=== PATIENT | male | born 1935 | race Caucasian/White ===

== ENCOUNTER 2017-04-16 13:37 | Inpatient (IN) | payer MEDICARE ==
[2017-04-16] VITALS (7 sets, daily range): BP systolic 151–220; BP diastolic 76–119; PULSE 55–87; RESP 16–20; TEMP 97.8–98.7; O2SAT 94–97
[~2017-04-16] VITALS: Ht 182.9 cm; Wt 103.8 kg
[2017-04-16] MEDS ORDERED: VITATAB43 PO (13:56)
[2017-04-16] MEDS ORDERED: NAPR250T4 PO (13:56)
[2017-04-16] MEDS ORDERED: METO50TA PO (13:56)
[2017-04-16] MEDS ORDERED: TAMS0.4C4 PO (13:56)
[2017-04-16] MEDS ORDERED: AMLO5TAB2 PO (13:56)
[2017-04-16] MEDS ORDERED: LISI-515 PO (13:56)
[2017-04-16] MEDS ORDERED: ASPI325T33 PO (13:56)
[2017-04-16] MEDS ORDERED: METF500T4 PO (13:56)
[2017-04-16] MEDS ORDERED: VITA1000 PO (13:56)
[2017-04-16] MEDS ORDERED: ATOR40TA16 PO (13:56)
[2017-04-16] MEDS ORDERED: ACET25TA4 PO (13:58)
[2017-04-16] MEDS ORDERED: OMEGCAP PO (13:58)
--- NOTE | 2017-04-16 13:59 | PD ---
HPI Chief Complaint: Neuro Symptoms/ Deficits Time Seen by Provider: 13:51 Travel History International Travel<30 days: No Contact w/Intl Traveler<30days: No Traveled to known affect area: No History of Present Illness HPI This 82-year-old male woke up this morning with slurred speech. This has not improved. He has been ambulatory. He has been using both of his arms without dropping anything. He appears confused at times. He has no history of a stroke. He did have a right carotid endarterectomy several years ago. 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 He has no history of heart disease. He does take an aspirin every day. He has not been complaining of pain. FOR[facility], [facility] Social History Tobacco Use: No Allergies-Medications (Allergen,Severity, Reaction): Coded Allergies: No Known Allergies (Unverified , 04/16/17) Reported Meds & Prescriptions Reported Meds & Active Scripts Active Reported Acetaminophen Pm Extra St (Diphenhydramine-Acetaminophen) 500-25 mg Tab 1 Tab PO DAILY [place]-3 Fish Oil/Vitamin (Fish Oil-Cholecalciferol) 1,000-1,000 Mg Cap 1 Cap PO DAILY Vitamin U85-Ythpw Acid (Cobalamine Combinations) 500-400 Mcg Tab 1 Tab PO DAILY Aspirin EC (Aspirin) 325 Mg Tabdr 325 Mg PO DAILY Amlodipine (Amlodipine Besylate) 5 Mg Tab 5 Mg PO DAILY Vitamin D-1000 (Cholecalciferol) 1,000 Unit Tab 2,000 Units PO DAILY Naproxen 250 Mg Tab 250 Mg PO DAILY Tamsulosin (Tamsulosin HCl) 0.4 Mg Cap 0.4 Mg PO HS Metoprolol Tartrate 50 Mg Tab 50 Mg PO DAILY Atorvastatin (Atorvastatin Calcium) 40 Mg Tab 40 Mg PO HS Lisinopril 20 Mg Tab 20 Mg PO BID Metformin ER (Metformin HCl) 500 Mg Lance 500 Mg PO BID With evening meal Review of Systems ROS Limitations: Speech Impaired, Poor Historian General / Constitutional: No: Fever, Chills Eyes: No: Diploplia, Blurred Vision HENT: No: Headaches, Vertigo Cardiovascular: No: Chest Pain or Discomfort, Palpitations Respiratory: No: Cough, Shortness of Breath Gastrointestinal: No: Vomiting, Diarrhea Genitourinary: No: Urgency, Frequency Musculoskeletal: No: Myalgias, Arthralgias Skin: No Rash, No Itching Neurologic: Positive: Slurred Speech, No: Weakness Psychiatric: No: Anxiety, Depression Endocrine: No: Heat Intolerance, Cold Intolerance Hematologic/Lymphatic: No: Easy Bruising Physical Exam Narrative GENERAL: Well-developed male SKIN: Focused skin assessment warm/dry. HEAD: Atraumatic. Normocephalic. EYES: Pupils equal and round. No scleral icterus. No injection or drainage. ENT: No nasal bleeding or discharge. Mucous membranes pink and moist. NECK: Trachea midline. No JVD. There is a right carotid endarterectomy scar CARDIOVASCULAR: Regular rate and rhythm. No murmur appreciated. RESPIRATORY: No accessory muscle use. Clear to auscultation. Breath sounds equal bilaterally. GASTROINTESTINAL: Abdomen soft, non-tender, nondistended. Hepatic and splenic margins not palpable. MUSCULOSKELETAL: No obvious deformities. No clubbing. No cyanosis. No edema. NEUROLOGICAL: Awake . No obvious cranial nerve deficits. Motor grossly within normal limits. Speech is slurred. He does have trouble finding words and sometimes says inappropriate words PSYCHIATRIC: Not testable Data Data Last Documented VS Vital Signs Date Time Temp Pulse Resp B/P (MAP) Pulse Ox O2 Delivery O2 Flow Rate FiO2 04/16/17 15:06 67 18 194/96 (128) 95 Room Air 04/16/17 13:41 98.7 Orders Orders Electrocardiogram (04/16/17 13:51) Complete Blood Count With Diff (04/16/17 13:51) Comprehensive Metabolic Panel (04/16/17 13:51) Prothrombin Time / Inr (Pt) (04/16/17 13:51) Act Partial Throm Time (Ptt) (04/16/17 13:51) Urinalysis - C+S If Indicated (04/16/17 13:51) Magnesium (Mg) (04/16/17 13:51) Chest, Single Ap (04/16/17 13:51) Ct Brain W/O Iv Contrast(Rout) (04/16/17 13:51) Admit Order (Ed Use Only) (04/16/17 15:16) Labs Laboratory Tests Test 04/16/17 14:00 04/16/17 15:05 White Blood Count 9.3 TH/MM3 Red Blood Count 5.19 MIL/MM3 Hemoglobin 15.7 GM/DL Hematocrit 49.3 % Mean Corpuscular Volume 95.0 FL Mean Corpuscular Hemoglobin 30.3 PG Mean Corpuscular Hemoglobin Concent 31.9 % Red Cell Distribution Width 14.8 % Platelet Count 274 TH/MM3 Mean Platelet Volume 9.2 FL Neutrophils (%) (Auto) 69.6 % Lymphocytes (%) (Auto) 21.7 % Monocytes (%) (Auto) 5.1 % Eosinophils (%) (Auto) 1.0 % Basophils (%) (Auto) 2.6 % Neutrophils # (Auto) 6.5 TH/MM3 Lymphocytes # (Auto) 2.0 TH/MM3 Monocytes # (Auto) 0.5 TH/MM3 Eosinophils # (Auto) 0.1 TH/MM3 Basophils # (Auto) 0.2 TH/MM3 CBC Comment DIFF FINAL Differential Comment Prothrombin Time 11.3 SEC Prothromb Time International Ratio 1.1 RATIO Activated Partial Thromboplast Time 28.6 SEC Blood Urea Nitrogen 16 MG/DL Creatinine 1.30 MG/DL Random Glucose 120 MG/DL Total Protein 6.7 GM/DL Albumin 3.7 GM/DL Calcium Level 9.1 MG/DL Magnesium Level 1.9 MG/DL Alkaline Phosphatase 68 U/L Aspartate Amino Transf (AST/SGOT) 14 U/L Alanine Aminotransferase (ALT/SGPT) 17 U/L Total Bilirubin 1.0 MG/DL Sodium Level 143 MEQ/L Potassium Level 3.8 MEQ/L Chloride Level 107 MEQ/L Carbon Dioxide Level 28.1 MEQ/L Anion Gap 8 MEQ/L Estimat Glomerular Filtration Rate 53 ML/MIN Urine Color YELLOW Urine Turbidity CLEAR Urine pH 6.5 Urine Specific [place] 1.016 Urine Protein NEG mg/dL Urine Glucose (UA) NEG mg/dL Urine Ketones NEG mg/dL Urine Occult Blood NEG Urine Nitrite NEG Urine Bilirubin NEG Urine Leukocyte Esterase NEG Urine RBC 0-3 /hpf Urine WBC 3-5 /hpf Urine Squamous Epithelial Cells 0-5 /hpf Urine Hyaline Casts 6-9 /lpf Urine Mucus FEW /lpf Microscopic Urinalysis Comment CULT NOT INDICATED MDM Medical Decision Making Medical Screen Exam Complete: Yes Emergency Medical Condition: Yes Medical Record Reviewed: Yes Differential Diagnosis Differential includes CVA, tumor Narrative Course Patient's symptoms were present at 7:30 when he woke up. It is now approaching 2 PM. He is out of the window for TPA. CT scan has been read as negative. His EKG shows atrial fibrillation. His is not aware of any history of atrial fibrillation and discussed the case with Dr. Ruiz. He recommends carotid ultrasound, echocardiogram and MRI of the brain without contrast. Patient will be admitted Diagnosis Primary Impression: Acute CVA (cerebrovascular accident) Admitting Information Admitting Physician Requests: Admit Aakash Lundberg MD Apr 16, 2017 13:59
[2017-04-16 14:05] LABS: AUTOMATED NEUTROPHIL # 6.5 TH/MM3 (1.8-7.7); BASOPHIL # 0.2 TH/MM3 (0-0.2); BASOPHIL % 2.6 % (0.0-2.0); EOSINOPHIL # 0.1 TH/MM3 (0-0.4); HEMATOCRIT 49.3 % (39.0-51.0); HEMOGLOBIN 15.7 GM/DL (13.0-17.0); LYMPH % 21.7 % (9.0-44.0); MEAN CORPUSCULAR HEMOGLOBIN 30.3 PG (27.0-34.0); MEAN CORPUSCULAR HGB CONC 31.9 % (32.0-36.0); MEAN PLATELET VOLUME 9.2 FL (7.0-11.0); MONO % 5.1 % (0.0-8.0); MONOCYTE # 0.5 TH/MM3 (0-0.9); NEUT % 69.6 % (16.0-70.0); PLATELET COUNT 274 TH/MM3 (150-450); RED BLOOD COUNT 5.19 MIL/MM3 (4.50-5.90); RED CELL DISTRIBUTION WIDTH 14.8 % (11.6-17.2); WHITE BLOOD COUNT 9.3 TH/MM3 (4.0-11.0)
[2017-04-16 14:16] LABS: CHLORIDE 107 MEQ/L (98-107); SODIUM (NA) 143 MEQ/L (136-145)
[2017-04-16 14:20] LABS: CALCIUM 9.1 MG/DL (8.5-10.1); INTERNATIONAL NORMALIZED RATIO 1.1 RATIO; PROTHROMBIN TIME - PATIENT 11.3 SEC (9.8-11.6)
[2017-04-16 14:21] LABS: ALBUMIN 3.7 GM/DL (3.4-5.0); BICARBONATE 28.1 MEQ/L (21.0-32.0); BLOOD UREA NITROGEN 16 MG/DL (7-18); GLUCOSE,RANDOM 120 MG/DL (74-106); MAGNESIUM 1.9 MG/DL (1.5-2.5)
[2017-04-16 14:24] LABS: ALT (GPT) 17 U/L (12-78); AST (GOT) 14 U/L (15-37); GLOMERULAR FILTRATION RATE 53 ML/MIN (>89)
[2017-04-16 14:26] LABS: TOTAL PROTEIN 6.7 GM/DL (6.4-8.2)
[2017-04-16 14:27] LABS: ALKALINE PHOSPHATASE 68 U/L (45-117)
--- NOTE | 2017-04-16 14:49 | RADRPT ---
EXAM DATE/TIME: 04/16/2017 14:32 [facility] COMPARISON: No previous studies available for comparison. INDICATIONS : Stroke alert MEDICAL HISTORY : AV malformation SURGICAL HISTORY : carotid artery "cleaned out" ENCOUNTER: Initial ACUITY: 1 day PAIN SCORE: 7/10 LOCATION: Bilateral chest FINDINGS: The lungs are clear. The heart is minimally enlarged. The pulmonary vascularity is normal. There is n o evidence for infiltrate or failure. The portion of the bony skeleton visualized is unremarkable. CONCLUSION: Compensated cardiomegaly otherwise negative Erasto Smith MD FACR on April 16, 2017 at 14:46 Board Certified Radiologist. This report was verified electronically.
--- NOTE | 2017-04-16 14:50 | RADRPT ---
EXAM DATE/TIME: 04/16/2017 14:33 [facility] COMPARISON: No previous studies available for comparison. INDICATIONS : Slurred speech and expressive aphasia. RADIATION DOSE: 62.54 CTDIvol (mGy) MEDICAL HISTORY : Parkinson's. Hypercholesterolemia. Hypertension. Diabetes. AV malformation. SURGICAL HISTORY : Carotid endarterectomy. ENCOUNTER: Initial ACUITY: 1 day PAIN SCALE: 0/10 LOCATION: cranial TECHNIQUE: Multiple contiguous axial images were obtained of the head. Using automated exposure control and adj ustment of the mA and/or kV according to patient size, radiation dose was kept as low as reasonably a chievable to obtain optimal diagnostic quality images. DICOM format image data is available electro nically for review and comparison. FINDINGS: CEREBRUM: The ventricles are normal for age. No evidence of midline shift, mass lesion, hemorrhage or acute in farction. No extra-axial fluid collections are seen. POSTERIOR FOSSA: The cerebellum and brainstem are intact. The 4th ventricle is midline. The cerebellopontine angle i s unremarkable. EXTRACRANIAL: The visualized portion of the orbits is intact. SKULL: The calvaria is intact. No evidence of skull fracture. CONCLUSION: Negative noncontrast axial head CT from the acute process. I do not seen the evidence of an AV malfo rmation. Erasto Smith MD FACR on April 16, 2017 at 14:47 Board Certified Radiologist. This report was verified electronically.
[2017-04-16 15:18] LABS: BILIRUBIN, URINE NEG (NEG); BLOOD, URINE NEG (NEG); GLUCOSE,URINE NEG (NEG); KETONE, URINE NEG (NEG); NITRITE,URINE NEG (NEG); PH, URINE 6.5 (5.0-8.5); URINE LEUKOCYTE ESTERASE NEG (NEG)
[2017-04-16 15:24] LABS: URINE COLOR YELLOW (YELLW/STRAW)
[2017-04-16 15:25] LABS: MUCUS URINE FEW /lpf (OCC); RBC, URINE 0-3 /hpf (0-3); SQUAMOUS EPITHELIAL CELL URINE 0-5 /hpf (0-5)
[2017-04-16] MEDS ORDERED: ASPIRIN 325 MG TAB PO ONE (15:30)
[2017-04-16] MEDS ORDERED: ASPIRIN 325 MG TAB PO SCH (15:30)
--- NOTE | 2017-04-16 15:56 | HHI.HP ---
[facility] Primary Care Physician Non-Staff Admission Diagnosis ACUTE CVA Diagnoses: Chief Complaint: Slurred speech Travel History International Travel<30 Days: No Contact w/Intl Traveler <30 Da: No Traveled to Known Affected Are: No History of Present Illness 82-year-old white male being brought in for strokelike symptoms. Patient was in his usual state of health until earlier this morning when his notified he had slurred speech since waking up. She said he would mispronounce words but she knew what he was trying to stay. She denies seeing any facial droop, abnormal gait, or any focal limb deficits. She says he ate his meals fine without any choking or respiratory distress. Patient denies any new pain symptoms today. says there is no further worsening of his confusion or dementia today compared to his baseline. says she gave him his typical daily 325 mg aspirin today and then another dose when she thought he needed further medical attention. states that the patient was diagnosed with Parkinson's disease by his primary care doctor. He never saw a neurologist. says they had declined medical treatment for and so the patient just lives with it on the day by day basis. thinks that the patient has slowly started developing some dementia. Review of Systems Except as stated in HPI: all other systems reviewed are Neg Past Family Social History Past Medical History BPH Hypertension CAD Past Surgical History Carotid endarterectomy left side Allergies: Coded Allergies: No Known Allergies (Unverified , 04/16/17) Family History parkinson's dx Social History used to smoke before 30 years ago ETOH Physical Exam Vital Signs Vital Signs Date Time Temp Pulse Resp B/P (MAP) Pulse Ox O2 Delivery O2 Flow Rate FiO2 04/16/17 15:06 67 18 194/96 (128) 95 Room Air 04/16/17 14:05 Room Air 04/16/17 13:41 98.7 55 16 151/87 (108) 95 Physical Exam VS: afebrile GENERAL: Elderly white male, well-nourished, awake, no acute distress SKIN: Warm and dry. EYES: Pupils equal and round. No scleral icterus. No injection or drainage. ENT: No nasal bleeding or discharge. Mucous membranes pink and moist. CARDIOVASCULAR: Regular rate and rhythm. no murmurs RESPIRATORY: No accessory muscle use. Clear to auscultation. Breath sounds equal bilaterally. GASTROINTESTINAL: Abdomen soft, non-tender, nondistended. Extremities: No clubbing, cyanosis, or edema. No obvious deformities. MUSCULOSKELETAL: grossly intact ROM with 5/5 strength in upper and lower extremities proximally; adequate muscle bulk and tone for age and habitus NEUROLOGICAL: Awake and alert. No obvious cranial nerve deficits. No facial droop; did have some transiently slurred speech that self resolved. Does have very minimal cogwheel rigidity on the right arm/forearm, none on the left. Intact finger to nose to finger bilaterally. Intact heel to marquez bilaterally. Appears to have very minimal shuffled gait, steady otherwise. Diminished patellar reflexes BL. Tongue in midline, shoulder shrug intact. Intact dorsiflexion and plantar flexion of bilateral feet. PSYCHIATRIC: Appropriate mood and affect; insight and judgment normal. Laboratory Laboratory Tests Test 04/16/17 14:00 04/16/17 15:05 White Blood Count 9.3 Red Blood Count 5.19 Hemoglobin 15.7 Hematocrit 49.3 Mean Corpuscular Volume 95.0 Mean Corpuscular Hemoglobin 30.3 Mean Corpuscular Hemoglobin Concent 31.9 Red Cell Distribution Width 14.8 Platelet Count 274 Mean Platelet Volume 9.2 Neutrophils (%) (Auto) 69.6 Lymphocytes (%) (Auto) 21.7 Monocytes (%) (Auto) 5.1 Eosinophils (%) (Auto) 1.0 Basophils (%) (Auto) 2.6 Neutrophils # (Auto) 6.5 Lymphocytes # (Auto) 2.0 Monocytes # (Auto) 0.5 Eosinophils # (Auto) 0.1 Basophils # (Auto) 0.2 CBC Comment DIFF FINAL Differential Comment Prothrombin Time 11.3 Prothromb Time International Ratio 1.1 Activated Partial Thromboplast Time 28.6 Blood Urea Nitrogen 16 Creatinine 1.30 Random Glucose 120 Total Protein 6.7 Albumin 3.7 Calcium Level 9.1 Magnesium Level 1.9 Alkaline Phosphatase 68 Aspartate Amino Transf (AST/SGOT) 14 Alanine Aminotransferase (ALT/SGPT) 17 Total Bilirubin 1.0 Sodium Level 143 Potassium Level 3.8 Chloride Level 107 Carbon Dioxide Level 28.1 Anion Gap 8 Estimat Glomerular Filtration Rate 53 Urine Color YELLOW Urine Turbidity CLEAR Urine pH 6.5 Urine Specific [place] 1.016 Urine Protein NEG Urine Glucose (UA) NEG Urine Ketones NEG Urine Occult Blood NEG Urine Nitrite NEG Urine Bilirubin NEG Urine Leukocyte Esterase NEG Urine RBC 0-3 Urine WBC 3-5 Urine Squamous Epithelial Cells 0-5 Urine Hyaline Casts 6-9 Urine Mucus FEW Microscopic Urinalysis Comment CULT NOT INDICATED Result Diagram: 04/16/17 1400 04/16/17 1400 Imaging Last Impressions Head CT 04/16/17 1351 Signed Impressions: Service Date/Time: Sunday, April 16, 2017 14:33 - CONCLUSION: Negative noncontrast axial head CT from the acute process. I do not seen the evidence of an AV malformation. Erasto Smith MD FACR Chest X-Ray 04/16/17 1351 Signed Impressions: Service Date/Time: Sunday, April 16, 2017 14:32 - CONCLUSION: Compensated cardiomegaly otherwise negative Erasto Smith MD FACR Caprini VTE Risk Assessment Caprini VTE Risk Assessment: Mod/High Risk (score >= 2) Caprini Risk Assessment Model Point Value = 1 Point Value = 2 Point Value = 3 Point Value = 5 Age 41-60 Minor surgery BMI > 25 kg/m2 Swollen legs Varicose veins or History of unexplained or recurrent spontaneous Oral contraceptives or hormone replacement Sepsis (< 1 month) Serious lung disease, including pneumonia (< 1 month) Abnormal pulmonary function Acute myocardial infarction Congestive heart failure (< 1 month) History of inflammatory bowel disease Medical patient at bed rest Age 61-74 Arthroscopic surgery Major open surgery (> 45 min) Laparoscopic surgery (> 45 min) Malignancy Confined to bed (> 72 hours) Immobilizing plaster cast Central venous access Age >= 75 History of VTE Family history of VTE Factor V Leiden Prothrombin [id number] Lupus anticoagulant Anticardiolipin antibodies Elevated serum homocysteine Heparin-induced thrombocytopenia Other congenital or acquired thrombophilia Stroke (< 1 month) Elective arthroplasty Hip, pelvis, or leg fracture Acute spinal cord injury (< 1 month) Prophylaxis Regimen Total Risk Factor Score Risk Level Prophylaxis Regimen 0-1 Low Early ambulation 2 Moderate Order ONE of the following: *Sequential Compression Device (SCD) *Heparin 5000 units SQ BID 3-4 Higher Order ONE of the following medications: *Heparin 5000 units SQ TID *Enoxaparin/Lovenox 40 mg SQ daily (WT < 150 kg, CrCl > 30 mL/min) *Enoxaparin/Lovenox 30 mg SQ daily (WT < 150 kg, CrCl > 10-29 mL/min) *Enoxaparin/Lovenox 30 mg SQ BID (WT < 150 kg, CrCl > 30 mL/min) AND/OR *Sequential Compression Device (SCD) 5 or more Highest Order ONE of the following medications: *Heparin 5000 units SQ TID (Preferred with Epidurals) *Enoxaparin/Lovenox 40 mg SQ daily (WT < 150 kg, CrCl > 30 mL/min) *Enoxaparin/Lovenox 30 mg SQ daily (WT < 150 kg, CrCl > 10-29 mL/min) *Enoxaparin/Lovenox 30 mg SQ BID (WT < 150 kg, CrCl > 30 mL/min) AND *Sequential Compression Device (SCD) Assessment and Plan Assessment and Plan 82-year-old white male being made for strokelike symptoms Strokelike symptoms - CT HD neg - MR brain, MRA brain and neck - ST/PT/OT - permissive hypertension - Aspirin daily - I independently reviewed EKG and I see atrial fibrillation; will consider starting anticoagulation tomorrow - telemetry Possible Parkinson's - Monitoring BPH - Hold Flomax in light of permissive hypertension unless has urinary retention issues overnight Coronary artery disease - Aspirin and Lipitor daily Hypertension - Hold home metoprolol and amlodipine in light of permissive hypertension fall precautions Addendum: and daughter have multiple questions about patient's AVM possibly playing a role in his current presentation. They state he was diagnosed with when the past and that the current CT does not show 1. I informed him that the purpose of the CT was to ensure that there was no head bleed and there isn't. Patient had refused MRI due to anxiety despite strict instructions to nursing on how to counseled the patient. We'll reattempt in AM and consult neurology. Physician Certification 2 Midnight Certification Type: Admission for Inpatient Services Order for Inpatient Services The services are ordered in accordance with Medicare regulations or non- Medicare payer requirements, as applicable. In the case of services not specified as inpatient-only, they are appropriately provided as inpatient services in accordance with the 2-midnight benchmark. Estimated LOS (days): 2 2 days is the estimated time the patient will need to remain in the hospital, assuming treatment plan goals are met and no additional complications. Post-Hospital Plan: Not yet determined Matt Leone MD Apr 16, 2017 15:56
[2017-04-16] MEDS: ENALAPRILAT 1.25 MG/ML VIAL IV PUSH PRN (16:19)
[2017-04-16] MEDS: SODIUM CHLOR 0.9% 1000 ML INJ 1,000 ML IV SCH (16:19)
[2017-04-16] MEDS ORDERED: LABETALOL HCL 100 MG/20 ML VIAL IV PUSH ONE (17:00)
[2017-04-16] MEDS ORDERED: LORazepam 2 MG/ML VIAL IV PUSH ONE (17:00)
[2017-04-16] MEDS: ACETAMINOPHEN 500 MG CPLT PO SCH (20:33)
[2017-04-16] MEDS: diphenhydrAMINE HCL 25 MG CAP PO SCH (20:33)
[2017-04-16] MEDS: ATORVASTATIN 40 MG TAB PO SCH (20:34)
[2017-04-16] MEDS ORDERED: TAMSULOSIN HCL 0.4 MG CAP PO SCH (21:00)
[2017-04-17] VITALS (7 sets, daily range): BP systolic 153–221; BP diastolic 79–115; PULSE 57–77; RESP 17–20; TEMP 96.1–98; O2SAT 94–97
[2017-04-17] MEDS: SODIUM CHLOR 0.9% 1000 ML INJ 1,000 ML IV SCH ×2 (03:38→16:18)
[2017-04-17] MEDS: CHOLECALCIFEROL (VIT D3) 1000 UNIT TAB PO SCH (08:28)
[2017-04-17] MEDS ORDERED: DIPHENHYDRAMINE ACETAMINOPHEN PO SCH (09:00)
[2017-04-17] MEDS ORDERED: NON-FORMULARY DRUG (Cobalamine Combinations (Vitamin B12-Folic Acid) 1 TAB) PO SCH (09:00)
[2017-04-17] MEDS ORDERED: ASPIRIN 325 MG TAB PO SCH (09:00)
[2017-04-17] MEDS ORDERED: NON-FORMULARY DRUG (Fish Oil-Cholecalciferol (Omega-3 Fish Oil/Vitamin) 1 CAP) PO SCH (09:00)
[2017-04-17] MEDS ORDERED: LORazepam 2 MG/ML VIAL IV PUSH ONE (11:00)
[2017-04-17] MEDS: LISINOPRIL 20 MG TAB PO SCH ×2 (11:06→20:27)
[2017-04-17] MEDS: amLODIPine BESYLATE 5 MG TAB PO SCH (11:06)
[2017-04-17] MEDS: METOPROLOL TARTRATE 50 MG TAB PO SCH (11:06)
--- NOTE | 2017-04-17 11:36 | HHI.FF ---
Face to Face Verification Diagnosis: (1) Parkinson disease, symptomatic (2) Acute CVA (cerebrovascular accident) Physical Therapy Order: Evaluate and Treat Occupational Therapy Order: Evaluate and Treat Speech Therapy Order: To Improve: Cognitive skills, Swallowing Home Health Nursing Order: Medical education Signs/symptoms of disease process I have seen patient Errol Damon on 04/17/17. My clinical findings support the need for the requested home health care services because: Limited ability to care for self Impaired cognition/judgement I certify that my clinical findings support that this patient is homebound because: Unsafe to leave home unassisted Matt Leone MD Apr 17, 2017 11:36
[2017-04-17] MEDS: ENALAPRILAT 1.25 MG/ML VIAL IV PUSH PRN (13:19)
--- NOTE | 2017-04-17 15:16 | ECHRPT ---
Indication: cva/tia CONCLUSIONS Normal left ventricular size. The left ventricular systolic function is normal with an estimated ejection fraction in the range of 55-60%. Trace mitral valve regurgitation. There is trace tricuspid valve regurgitation. The estimated pulmonary arterial pressure is 39.4 mmHg. BP: / HR: Rhythm: MEASUREMENTS (Male / Female) Normal Values Technical Quality:Fair 2D ECHO LV Diastolic Diameter PLAX 5.2 cm 4.2 - 5.9 / 3.9 - 5.3 cm LV Systolic Diameter PLAX 3.9 cm IVS Diastolic Thickness 1.3 cm 0.6 - 1.0 / 0.6 - 0.9 cm LVPW Diastolic Thickness 1.2 cm 0.6 - 1.0 / 0.6 - 0.9 cm LV Relative Wall Thickness 0.5 RV Internal Dim ED PLAX 3.0 cm M-MODE Aortic Root Diameter MM 3.8 cm LA Systolic Diameter MM 4.7 cm LA Ao Ratio MM 1.2 AV Cusp Separation MM 2.0 cm DOPPLER TR Peak Velocity 271.0 cm/s TR Peak Gradient 29.4 mmHg Right Atrial Pressure 10.0 mmHg Pulmonary Artery Systolic Pressu 39.4 mmHg Right Ventricular Systolic Press 39.4 mmHg FINDINGS LEFT VENTRICLE Normal left ventricular size. The left ventricular systolic function is normal with an estimated ejection fraction in the range of 55-60%. RIGHT VENTRICLE Normal right ventricular size and systolic function. LEFT ATRIUM The left atrial size is normal. RIGHT ATRIUM The right atrial size is normal. ATRIAL SEPTUM Normal atrial septal thickness without atrial level shunting by limited color doppler interrogation. AORTA The aortic root and proximal ascending aorta are normal in size on limited imaging. MITRAL VALVE Structurally normal mitral valve. [id number] mitral valve regurgitation. AORTIC VALVE Trileaflet aortic valve. No aortic valve stenosis or regurgitation. TRICUSPID VALVE Structurally normal tricuspid valve. There is trace tricuspid valve regurgitation. The estimated pulmonary arterial pressure is 39.4 mmHg. PULMONARY VALVE No pulmonary valve regurgitation or stenosis. VESSELS The inferior vena cava is normal in size. PERICARDIUM No pericardial effusion. Ari Parisi MD, FACC, [facility] [place], [place] (Electronically Signed) Final Date:17 April 2017 15:15
--- NOTE | 2017-04-17 15:59 | EKG ---
Date Performed: 04/16/2017 Time Performed: 14:00:08 PTAGE: 82 years EKG: ATRIAL FIBRILLATION Poor R-wave progresssion Possible old anterior wall myocardial infarcti on ABNORMAL RHYTHM ECG NO PREVIOUS TRACING Clinical correlation is recommended DOCTOR: Tam Morillo Interpretating Date/Time 04/17/2017 15:57:39
[2017-04-17] MEDS ORDERED: GADODIAMIDE PF 287 MG/ML 20 ML VIAL (for RAD MRI) IVCONTRAST ONE (16:00)
--- NOTE | 2017-04-17 16:38 | RADRPT ---
EXAM DATE/TIME: 04/17/2017 15:26 [facility] COMPARISON: MRI BRAIN W/O CONTRAST, April 17, 2017, 15:26. CT BRAIN W/O CONTRAST, April 16, 2017, 14:33. INDICATIONS : Slurred speech. Altered mental status. CVA. MEDICAL HISTORY : Hypertension. Diabetes mellitus type 2. Arthritis. SURGICAL HISTORY : Carotid endarterectomy. ENCOUNTER: Subsequent ACUITY: 2 day PAIN SCORE: 0/10 LOCATION: head. Please note a normal MRA of the brain does not entirely exclude the possibility of a small aneurysm, nor the possibility of distal intracranial vessel disease. TECHNIQUE: 3D time of flight MRA was performed. Source images, multiplanar STS MIP, and 3D volume MIP reconstru ctions were reviewed. FINDINGS: There is excellent visualization of the major intracranial arteries out to the second-order branch ve ssels. There is no evidence for aneurysm, vessel truncation or stenosis, and no evidence for vascula r malformation. The A1 segment of right anterior cerebral artery is mildly hypoplastic. There is a sm all heterogeneous area of focally increased signal intensity in the right lentiform nucleus which is of undetermined significance at this point. Correlation with contrasted MRI appearance may be benefic ial. CONCLUSION: No acute chipewwa of Reed vascular findings. Rubin Engel MD on April 17, 2017 at 16:29 Board Certified Radiologist. This report was verified electronically.
--- NOTE | 2017-04-17 16:40 | RADRPT ---
EXAM DATE/TIME: 04/17/2017 15:26 [facility] COMPARISON: No previous studies available for comparison. INDICATIONS : Stenosis. CVA. CONTRAST: 20 cc Omniscan (gadodiamide) IV MEDICAL HISTORY : Hypertension. Diabetes mellitus type 2. Arthritis. SURGICAL HISTORY : Carotid endarterectomy. ENCOUNTER: Subsequent ACUITY: 2 day PAIN SCORE: 0/10 LOCATION: neck. Percent stenosis is calculated using the diameter of the stenotic region over the diameter of the nor mal distal internal carotid artery. TECHNIQUE: Bolus infused MRA of the extracranial circulation was performed using a neurovascular coil. Post pro cessing was performed including rotating subvolume maximum intensity projections of each carotid dorcas ry, rotating full volume maximum intensity projections of both carotid arteries, sagittal and coronal sliding thin slab reformations of each carotid artery, and left oblique sliding thin slab reformatio n through the aortic arch to include the origin of the arch branch vessels. FINDINGS: AORTIC ARCH: There is a three vessel origin of the great vessels from the aorta. No evidence of ostial narrowing. RIGHT CAROTID: The common carotid artery is intact. The carotid bulb has a normal configuration without ulceration or narrowing. The internal carotid artery lumen is smooth without stenosis. The external carotid ar darrius is intact. LEFT CAROTID: The common carotid artery is intact. The carotid bulb has a normal configuration without ulceration or narrowing. The internal carotid artery lumen is smooth without stenosis. The external carotid ar darrius is intact. VERTEBRALS: The vertebral arteries have a symmetric diameter. No stenotic lesions are seen. CONCLUSION: No evidence of significant carotid or vertebral stenosis. Rubin Engel MD on April 17, 2017 at 16:36 Board Certified Radiologist. This report was verified electronically.
--- NOTE | 2017-04-17 16:45 | HHI.PR ---
Subjective Remarks Follow-up neurological symptoms. Patient seen and examined, daughter and family at bedside. Patient is awake and alert, pleasantly confused. Spoke at length regarding treatment plan and plan for MRI and neurological consult. Patient is asking questions, seems to have some short term memory issues, had to frequently repeat information. Otherwise patient is doing well, denies any pain. Speech is clear. Passage swallow eval, will begin diet. Afebrile. Elevated BP noted. Objective Vitals Vital Signs Date Time Temp Pulse Resp B/P (MAP) Pulse Ox O2 Delivery O2 Flow Rate FiO2 04/17/17 14:20 60 18 182/107 (132) 04/17/17 12:00 98.0 57 18 221/102 (141) 97 04/17/17 08:00 96.2 75 17 195/94 (127) 96 04/17/17 08:00 77 04/17/17 04:00 96.1 60 20 186/97 (126) 95 04/17/17 00:00 96.4 68 20 153/79 (103) 96 04/16/17 20:00 97.8 66 20 167/76 (106) 94 04/16/17 20:00 81 04/16/17 18:05 04/16/17 17:47 73 185/87 (119) 04/16/17 17:20 77 17 213/117 (149) 95 Room Air 04/16/17 16:51 80 16 211/115 (147) 97 Room Air I/O 04/16/17 04/16/17 04/16/17 04/17/17 04/17/17 04/17/17 07:00 15:00 23:00 07:00 15:00 23:00 Intake Total 963 ml Output Total 50 ml 975 ml 200 ml Balance -50 ml -12 ml -200 ml Intake Oral 0 ml IV Total 963 ml Output Urine Total 50 ml 975 ml 200 ml # Voids 1 3 Result Diagram: 04/16/17 1400 04/16/17 1400 Imaging Last Impressions Head CT 04/16/17 1351 Signed Impressions: Service Date/Time: Sunday, April 16, 2017 14:33 - CONCLUSION: Negative noncontrast axial head CT from the acute process. I do not seen the evidence of an AV malformation. Erasto Smith MD FACR Chest X-Ray 04/16/17 1351 Signed Impressions: Service Date/Time: Sunday, April 16, 2017 14:32 - CONCLUSION: Compensated cardiomegaly otherwise negative Erasto Smith MD FACR Objective Remarks GENERAL: Elderly white male, well-nourished, awake, no acute distress SKIN: Warm and dry. EYES: Pupils equal and round. No scleral icterus. No injection or drainage. ENT: No nasal bleeding or discharge. Mucous membranes pink and moist. CARDIOVASCULAR: Regular rate and rhythm. no murmurs RESPIRATORY: No accessory muscle use. Clear to auscultation. Breath sounds equal bilaterally. GASTROINTESTINAL: Abdomen soft, non-tender, nondistended. Extremities: No clubbing, cyanosis, or edema. No obvious deformities. MUSCULOSKELETAL: grossly intact ROM with 5/5 strength in upper and lower extremities proximally; adequate muscle bulk and tone for age and habitus NEUROLOGICAL: Awake and alert. No obvious cranial nerve deficits. No facial droop; speech is clear. Intact finger to nose to finger bilaterally. Intact heel to marquez bilaterally. Tongue is midline, shoulder shrug intact. Intact dorsiflexion and plantar flexion of bilateral feet. PSYCHIATRIC: Appropriate mood and affect; insight and judgment normal. A/P Assessment and Plan 82-year-old white male being made for strokelike symptoms Strokelike symptoms including slurred speech rule out acute CVA - CT Head neg. - Chest x-ray chest x-ray reviewed, showing compensated cardiomegaly. No acute disease. - MRI brain, MRA brain and neck performed, awaiting results. Follow. -Physical therapy is seeing patient. Speech therapy and see patient today, passed valuation no signs of dysphagia. Start heart healthy diet. - permissive hypertension - Aspirin daily. - EKG showing presence of atrial fibrillation, appreciate neurological input and recommendations regarding anticoagulation. - Continue cardiac telemetry, monitor for any arrhythmias. Possible Parkinson's - Monitoring - Supportive care - Appreciate neurological input. BPH - Hold Flomax in light of permissive hypertension unless has urinary retention issues overnight Coronary artery disease - Continue Aspirin and Lipitor daily Hypertension - BP significantly elevated, systolic in the 220s, restarted metoprolol and lisinopril. Vasotec as needed when necessary per parameters. Will allow some permissive hypertension, appreciate neurological recommendations. Continue fall precautions Discharge Planning Awaiting neuro recommendations. Possible discharge tomorrow. Laura Wood Apr 17, 2017 16:45
--- NOTE | 2017-04-17 17:09 | RADRPT ---
EXAM DATE/TIME: 04/17/2017 15:26 [facility] COMPARISON: No previous studies available for comparison. INDICATIONS : Slurred speech. Altered mental status. CVA. MEDICAL HISTORY : Hypertension. Diabetes mellitus type 2. Arthritis. SURGICAL HISTORY : Carotid endarterectomy. ENCOUNTER: Subsequent ACUITY: 2 day PAIN SCORE: 0/10 LOCATION: head. TECHNIQUE: Multiplanar, multisequence MRI of the brain was performed without contrast. FINDINGS: CEREBRUM: Focal increased T2 and flair signal, primarily subcortical, corresponding with region of restricted d iffusion in the posterior left parieto-occipital mid to low convexity. [id number] diffuse cereb ral volume loss. The ventricles are normal for degree of atrophy. No evidence of midline shift, mass lesion, hemorrhage or acute infarction. No extraaxial fluid collections are seen. The pituitary gl and and suprasellar cistern are normal in configuration. WHITE MATTER: [id number] periventricular and deep white matter focal T2 prolongation consistent with small ve ssel ischemic demyelination. POSTERIOR FOSSA: The cerebellum and brainstem are intact. The 4th ventricle is midline. The cerebellopontine angle is unremarkable. The cerebellar tonsils are normal in position. DIFFUSION IMAGING: Focal restricted diffusion in the left posterior parieto-occipital mid to low convexity. No associate d mass effect. EXTRACRANIAL: The visualized portions of the orbits and paranasal sinuses are unremarkable. CONCLUSION: 1. Findings consistent with focal region of probable subacute infarction in the left parieto-occipita l mid to low convexities which may reflect a watershed infarct. However, this appears to primarily af fect the subcortical white matter. Consider gadolinium enhanced examination to exclude mass or focal demyelinating process. 2. Senescent changes with moderate periventricular small vessel white matter ischemic demyelination. Jamison Meléndez MD on April 17, 2017 at 16:56 Board Certified Radiologist. This report was verified electronically.
[2017-04-17] MEDS ORDERED: ENOXAPARIN SODIUM 40 MG/0.4 ML SYRINGE SQ ONE (18:15)
--- NOTE | 2017-04-17 18:16 | HHI.DCPOC ---
Discharge Care Plan Diagnosis: (1) Acute CVA (cerebrovascular accident) Additional Problems [phone] Dr. Davis's office with neurology. Goals to Promote Your Health * To prevent worsening of your condition and complications * To maintain your health at the optimal level Directions to Meet Your Goals Take your medications as prescribed Follow your dietary instruction Follow activity as directed Keep your appointments as scheduled Take your immunizations and boosters as scheduled If your symptoms worsen call your PCP, if no PCP go to Urgent Care Center or Emergency Room Smoking is Dangerous to Your Health. Avoid second hand smoke Call the 24-hour hour crisis hotline for domestic abuse at Matt Leone MD Apr 17, 2017 18:16
[2017-04-17] MEDS ORDERED: APIX2.5T PO (18:19)
[2017-04-17] MEDS ORDERED: ENALAPRILAT 2.5 MG/2 ML VIAL IV PUSH ONE (18:30)
[2017-04-17] MEDS: ATORVASTATIN 40 MG TAB PO SCH (20:26)
[2017-04-17] MEDS: diphenhydrAMINE HCL 25 MG CAP PO SCH (22:17)
[2017-04-17] MEDS: ACETAMINOPHEN 500 MG CPLT PO SCH (22:17)
[2017-04-18] VITALS: BP 192/108; PULSE 72; RESP 16; TEMP 97.8; O2SAT 94
[2017-04-18] MEDS: SODIUM CHLOR 0.9% 1000 ML INJ 1,000 ML IV SCH (03:15)
[2017-04-18 04:17] VITALS: BP 171/74; PULSE 70; RESP 18; TEMP 97.2; O2SAT 95
[2017-04-18 07:30] VITALS: BP 170/80; PULSE 53; RESP 20; TEMP 96.8; O2SAT 96
--- NOTE | 2017-04-18 07:47 | HHI.PR ---
Subjective Remarks Late entry note for date of service 04/17/16. I independently evaluated and examined the patient. Studies reviewed and discussed with Dr. Davis; does not see AVM. No reason to keep patient in-hospital from discussion with neurology for further workup at this time. Pt has completed permissive HTN phase. Clearance to start anticoagulation (once a day eliquis for one week and then BID afterwards) and to follow with neurology outpatient. Discussed plan of care with family and patient were all receptive. On exam patient has 5 out of 5 asphalt tile floor layer strength and proximal upper and lower extremity strength. Follows commands appropriately and has tongue and uvula at midline. No facial droop. Plan to discharge patient on 04/17/16 on novel oral anticoagulant. Will hold off on baby aspirin until seen by neurology. Continue lipitor. Objective Vital Signs Date Time Temp Pulse Resp B/P (MAP) Pulse Ox O2 Delivery O2 Flow Rate FiO2 04/18/17 04:17 97.2 70 18 171/74 (106) 95 04/18/17 00:00 97.8 72 16 192/108 (136) 94 04/17/17 20:00 74 04/17/17 20:00 97.3 73 18 190/115 (140) 96 04/17/17 16:00 96.4 67 17 170/100 (123) 94 04/17/17 14:20 60 18 182/107 (132) 04/17/17 12:00 98.0 57 18 221/102 (141) 97 04/17/17 08:00 96.2 75 17 195/94 (127) 96 04/17/17 08:00 77 I/O 04/17/17 04/17/17 04/17/17 04/18/17 04/18/17 04/18/17 07:00 15:00 23:00 07:00 15:00 23:00 Intake Total 963 ml 488 ml 360 ml Output Total 975 ml 200 ml Balance -12 ml -200 ml 488 ml 360 ml Intake Oral 0 ml 360 ml IV Total 963 ml 488 ml Output Urine Total 975 ml 200 ml # Voids 3 2 # Bowel Movements 0 Result Diagram: 04/16/17 1400 04/16/17 1400 Matt Leone MD Apr 18, 2017 07:47
[2017-04-18 08:00] VITALS: PULSE 50
[2017-04-18] MEDS ORDERED: ENALAPRILAT 2.5 MG/2 ML VIAL IV PUSH PRN (08:00)
[2017-04-18] MEDS ORDERED: hydrALAZINE HCL 25 MG TAB PO ONE (08:00)
[2017-04-18] MEDS ORDERED: ASPIRIN EC 81 MG TABEC PO SCH (09:00)
[2017-04-18] MEDS: METOPROLOL TARTRATE 50 MG TAB PO SCH (09:00)
[2017-04-18] MEDS: CHOLECALCIFEROL (VIT D3) 1000 UNIT TAB PO SCH (09:59)
[2017-04-18] MEDS: amLODIPine BESYLATE 5 MG TAB PO SCH (09:59)
[2017-04-18] MEDS: LISINOPRIL 20 MG TAB PO SCH (09:59)
[2017-04-18] MEDS ORDERED: BEDSIDE COMMODE1 MI1 (12:02)
== END 2017-04-18 10:10 | disposition home health service (06) | DRG 66 ==
LOC: PHED 13:37 → PHEDA 15:17 → PH3B 18:31
PROVIDERS: ADMIT Hospitalist; ATTEND Hospitalist
DX: I63.9 Cerebral infarction, unspecified (principal); G20 Parkinson's disease; I48.91 Unspecified atrial fibrillation; I10 Essential (primary) hypertension; N40.0 Benign prostatic hyperplasia without lower urinary tract symptoms; R47.81 Slurred speech; I25.10 Atherosclerotic heart disease of native coronary artery without angina pectoris; Z87.891 Personal history of nicotine dependence
CPT/HCPCS: 70450; 70544; 70548; 70551; 71045; 80053; 81001; 82607; 82948; 83735; 85025; 85610; 85730; 93005; 93306; A9579; J1650; J2060; J7030